=== PATIENT | male | born 1990 ===

== ENCOUNTER 2018-05-05 16:26 | Emergency (ER) | payer OTHER ==
[2018-05-05 16:46] VITALS: BMI 28.1
[2018-05-05 16:47] VITALS: BP 128/84; PULSE 64; RESP 18; TEMP 98.8; O2SAT 97
[2018-05-05] MEDS ORDERED: Oxycodone/Acetaminophen 5/325 mg Tab PO STA (17:02)
--- NOTE | 2018-05-05 17:10 | ED PDOC ---
Arrival/HPI <MelvagillEva A - Last Filed: 05/05/18 18:54> - General Historian: Patient - History of Present Illness Narrative History of Present Illness (Text): Patient is a 27 yr old male with no PMH who presents to Ed after injuring his hand at work earlier today. 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 He states he has been able to move and feel his hand with pain in the affected finger. patient denies any other pain or injuries other than the hand. He denies MOORE, CP, Dizziness, SOB, abdominal pain, n/v, f/c, extremity weakness. 05/05/18 19:22 Time/Duration: Prior to Arrival, 4-6 hours Symptom Onset: Sudden Symptom Course: Unchanged Quality: Aching Severity Level: 8 Context: Work <HoracioHillary - Last Filed: 05/05/18 19:32> - General Chief Complaint: Finger,Hand,&Wrist Time Seen by Provider: 05/05/18 16:31 Past Medical History - Provider Review Nursing Documentation Reviewed: Yes - Infectious Disease Hx of Infectious Diseases: None - Psychiatric Hx Substance Use: No - Surgical History Hx Appendectomy: Yes <HoracioHillary - Last Filed: 05/05/18 19:32> Family/Social History - Physician Review Nursing Documentation Reviewed: Yes Family/Social History: Unknown Family HX Smoking Status: Never Smoked Hx Alcohol Use: No Hx Substance Use: No <HoracioHillary - Last Filed: 05/05/18 19:32> Allergies/Home Meds <Eva Agudelo - Last Filed: 05/05/18 18:54> <Leonard,Hillary - Last Filed: 05/05/18 19:32> Allergies/Adverse Reactions: Allergies shrimp Allergy (Verified 05/05/18 16:46) ANAPHYLAXIS Review of Systems - Physician Review All systems were reviewed & negative as marked: Yes - Review of Systems Constitutional: Normal Eyes: Normal Respiratory: Normal. absent: SOB, Cough Cardiovascular: Normal. absent: Chest Pain Gastrointestinal: Normal. absent: Abdominal Pain, Nausea, Vomiting Genitourinary Male: Normal Musculoskeletal: Joint Swelling, Other (right third finger pain) Skin: absent: Laceration <Hillary Leonard - Last Filed: 05/05/18 19:32> Physical Exam Vital Signs Temp Pulse Resp BP Pulse Ox 05/05/18 16:46 98.8 F 64 18 128/84 97 <Eva Agudelo Adrien - Last Filed: 05/05/18 18:54> Vital Signs Reviewed: Yes Vital Signs Temp Pulse Resp BP Pulse Ox 05/05/18 16:46 98.8 F 64 18 128/84 97 Temperature: Afebrile Blood Pressure: Normal Pulse: Regular Respiratory Rate: Normal Appearance: Positive for: Well-Appearing, Non-Toxic, Comfortable Pain Distress: None Mental Status: Positive for: Alert and Oriented X 3 - Systems Exam Head: Present: Atraumatic, Normocephalic Extroacular Muscles: Present: EOMI Mouth: Present: Moist Mucous Membranes Neck: Present: Normal Range of Motion Respiratory/Chest: Present: Clear to Auscultation Cardiovascular: Present: Regular Rate and Rhythm, Normal S1, S2. No: Murmurs Abdomen: No: Tenderness, Distention Upper Extremity: Present: Normal Inspection, NORMAL PULSES, Tenderness, S welling, Neurovascularly Intact, Other (tenderness over the PIP joint and swollen ecchymotic distal right third finger. unable to bend well at PIP due to edema, no skin break or laceration). No: Cyanosis, Edema, Normal ROM (decreased ROm in third right finger d/t edema), Deformity Lower Extremity: Present: Normal Inspection, NORMAL PULSES. No: Edema, CALF TENDERNESS Neurological: Present: GCS=15, CN II-XII Intact, Speech Normal, Normal Sensory Function, Other (difficulty moving right third finger) Skin: Present: Warm, Dry, Erythematous. No: Laceration, Abrasion Psychiatric: Present: Alert, Oriented x 3, Normal Insight, Normal Concentration <Hillary Leonard - Last Filed: 05/05/18 19:32> Medical Decision Making ED Course and Treatment: 05/05/18 18:54 Patient seen by resident and then evaluated by me. Presenting after direct trauma to R 3rd finger. No skin break. Xray shows "Soft tissue swelling. Evidence of nondisplaced fracture deformity of the distal 3rd phalanx." Patient placed in splint and instructed to follow-up with ortho - RAD Interpretation Radiology Orders: 05/05/18 17:01 HAND RIGHT 3 VIEWS [RAD] Stat - Medication Orders Current Medication Orders: Discontinued Medications Oxycodone/Acetaminophen (Percocet 5/325 Mg Tab) 1 tab PO STAT STA Stop: 05/05/18 17:03 Last Admin: 05/05/18 18:07 Dose: 1 tab MAR Pain Assessment Document 05/05/18 18:07 [facility] (Rec: 05/05/18 18:07 [id number]) Pain Reassessment Is this a pain reassessment? No <Eva Agudelo - Last Filed: 05/05/18 18:54> ED Course and Treatment: Impression: 27 yr old male with injury to the right third finger possible f racture Plan: Pain control Right hand XR three view reassess and dispo 05/05/18 17:03 Patient placed in splint d/t distal phalanx fracture, instructed to call Dr. Anderson's office to follow up 05/05/18 19:31 - RAD Interpretation Narrative RAD Interpretations (Text): 05/05/18 19:26 Radiology Results Hand X-Ray 05/05/18 17:01 IMPRESSION: Soft tissue swelling. Evidence of nondisplaced fracture deformity of the distal 3rd phalanx. Radiology Orders: 05/05/18 17:01 HAND RIGHT 3 VIEWS [RAD] Stat - Medication Orders Current Medication Orders: Discontinued Medications Oxycodone/Acetaminophen (Percocet 5/325 Mg Tab) 1 tab PO STAT STA Stop: 05/05/18 17:03 <Hillary Leonard - Last Filed: 05/05/18 19:32> Disposition/Present on Arrival <Eva Agudelo - Last Filed: 05/05/18 18:54> - Present on Arrival Any Indicators Present on Arrival: No History of DVT/PE: No History of Uncontrolled Diabetes: No Urinary Catheter: No History of Decub. Ulcer: No History Surgical Site Infection Following: None - Disposition Have Diagnosis and Disposition been Completed?: Yes Disposition Time: 19:27 Patient Plan: Discharge <Hillary Leonard - Last Filed: 05/05/18 19:32> - Disposition Diagnosis: Phalanx, distal fracture of finger Disposition: HOME/ ROUTINE Condition: GOOD Discharge Instructions (ExitCare): Finger Fracture Additional Instructions: Please follow up with your primary care physician upon discharge You have been given a referral to Dr. Boiardo, an Orthobedic Surgeon, please call the office number provided to make an appointement baljeet 3-5 days of discharge Prescriptions: Ibuprofen [Motrin] 400 mg PO Q6 PRN #30 tab PRN Reason: Pain, Moderate (4-7) Referrals: FAMILY PROVIDER,NO [Primary Care Provider] - Follow up with primary Doni Anderson III, MD [Medical Doctor] - Follow up with primary Forms: [employer] (Sinhala), WORK NOTE
--- NOTE | 2018-05-05 18:51 | RAD ---
PROCEDURE: Right Hand Radiographs. HISTORY: finger injury COMPARISON: None available. FINDINGS: BONES: Nondisplaced fracture deformity of the distal 3rd phalanx. JOINTS: No dislocation. SOFT TISSUES: Soft tissue swelling. No evidence of radiopaque foreign body. OTHER FINDINGS: None. IMPRESSION: Soft tissue swelling. Evidence of nondisplaced fracture deformity of the distal 3rd phalanx.
== END 2018-05-05 19:25 | disposition home or self-care (01) ==
LOC: ED 16:26
DX: S62.662A Nondisplaced fracture of distal phalanx of right middle finger, initial encounter for closed fracture (principal); W22.8XXA Striking against or struck by other objects, initial encounter; Y93.H3 Activity, building and construction; Y92.89 Other specified places as the place of occurrence of the external cause; Y99.0 Civilian activity done for income or pay